=== PATIENT | male | born 1980 | race Caucasian/White ===

== ENCOUNTER 2021-03-19 20:14 | Emergency (ER) | payer OTHER ==
[~2021-03-19] VITALS: Ht 175.3 cm; Wt 70.5 kg
[2021-03-19 20:41] LABS: BASOPHILS % (AUTO) 0 % (0-1); EOSINOPHILS % (AUTO) 5 % (1-7); LYMPHOCYTES % (AUTO) 29 % (22-44); MEAN CORPUSCULAR HEMOGLOBIN 32.3 pg (27.5-34.5); MEAN CORPUSCULAR HGB CONC 34.6 g/dL (33.2-36.2); MEAN PLATELET VOLUME 8.1 fL (7.4-10.4); MONOCYTES % (AUTO) 7 % (2-9); NEUTROPHILS % (AUTO) 59 % (42-75); PLATELET COUNT 281 x10^3/uL (130-400); RED BLOOD COUNT 5.63 x10^6/uL (4.38-5.82); RED CELL DISTRIBUTION WIDTH 14.6 % (9.4-14.8)
[2021-03-19 20:48] LABS: ALANINE AMINOTRANSFERASE 35 U/L (12-78); ANION GAP 7 mmol/L (5-15); CALCIUM 8.4 mg/dL (8.5-10.1); CHLORIDE 107 mmol/L (98-107); SALICYLATE LEVEL 5.5 mg/dL (2.8-20.0)
--- NOTE | 2021-03-19 20:49 | NUR ---
PT BROUGHT IN BY AMBULANCE FROM HOME, PT PRESENTS TO ER WITH SI WITH A PLAN TO HANG HIMSELF, PT WAS GOING TO GO TO [facility] BUT PTS ALCOHOL WAS 0.4 AND [facility] REQUIRES IT TO BE BELOW 0.3, PT STATED HE HAS ALWAYS HAD SI BUT NOW HE HAS A PLAN, PT A/OX4, PT INTOXICATED BUT ABLE TO WALK ON HIS OWN AND ANSWERS QUESTIONS APPROPRIATELY, PT STATES HE HAS NO MEDICAL HISTORY, PT BELONGINGS PUT INTO LOCKER AND GARAGE DOORS DOWN FOR PT SAFETY
[2021-03-19 20:50] LABS: ALKALINE PHOSPHATASE 93 U/L (45-117); BILIRUBIN,TOTAL 0.2 mg/dL (0.2-1.0); CREATININE 0.97 mg/dL (0.7-1.3); TOTAL PROTEIN 8.3 g/dL (6.4-8.2)
[2021-03-19 20:51] LABS: MICROSCOPIC NOT IND
[2021-03-19 21:02] LABS: AMPHETAMINE SCREEN, URINE Negative (Negative); BARBITURATE SCREEN, URINE Negative (Negative); BENZODIAZEPINE SCREEN, URINE Negative (Negative); CANNABINOID SCREEN, URINE Negative (Negative); COCAINE SCREEN, URINE Negative (Negative); METHADONE SCREEN, URINE Negative (Negative); OPIATE SCREEN, URINE Negative (Negative)
--- NOTE | 2021-03-19 21:05 | NUR ---
PT LAYING IN BED, PT STATED HE WAS CONFUSED WHY HE WAS HERE, THIS RN STATED THAT HE WAS BROUGHT BY EMS HERE BECAUSE RB SAID HE WAS TOO DRUNK TO BE THERE, PT IN NAD, GARAGE DOORS DOWN, SITTER IN LINE OF SIGHT
--- NOTE | 2021-03-19 22:08 | NUR ---
PT ASLEEP IN BED, SITTER IN LINE OF SIGHT, GARAGE DOORS DOWN
--- NOTE | 2021-03-19 23:02 | NUR ---
PT ASLEEP IN BED, SITTER IN LINE OF SIGHT, GARAGE DOORS DOWN, NAD AT THIS TIME
--- NOTE | 2021-03-20 00:09 | NUR ---
PT LAYING IN BED, PT A/OX3, ALL NEEDS IN REACH, GARAGE DOORS DOWN AND SITTER IN LINE OF SIGHT, PT NAD AT THIS TIME
--- NOTE | 2021-03-20 01:07 | NUR ---
REPORT FROM CARLINE WHEAT
--- NOTE | 2021-03-20 01:07 | NUR ---
PT RESTING IN BED WITH SITTER IN VIEW OF PT, WCTM
[2021-03-20 01:30] VITALS: BP 133/87
--- NOTE | 2021-03-20 02:09 | NUR ---
Pt resting in bed, sitter in view, RODRÍGUEZ
--- NOTE | 2021-03-20 03:21 | NUR ---
PT CONTINUES TO REST IN BED, NADN, WCTM
--- NOTE | 2021-03-20 03:51 | NUR ---
MABEL Verma and this RN reevaluated pt and suicide reassessment. Pt denies SI and HI, asked if he remembers why he is here, pt accurately describes the situation that brought him to this hospital. Went over plan of dc and where pt lives. States that he lives with his parents and that he will either call a cab or call his parents to come get him. Pt provided all belongings.
== END 2021-03-20 04:13 | disposition home or self-care (01) ==
LOC: ED 20:52 → UNDOADMOB 03-20 01:46 → EDIP 03-20 01:46 → ED 03-20 04:13
DX: R45.851 Suicidal ideations (principal); F10.120 Alcohol abuse with intoxication, uncomplicated; Y90.0 Blood alcohol level of less than 20 mg/100 ml
CPT/HCPCS: 36415; 80053; 80299; 80307; 80320; 80329; 81003; 85025; 99283; 99285; G0480